=== PATIENT | female | born 1940 | race Caucasian/White ===

== ENCOUNTER → 2017-06-09 | Outpatient (REF) | payer OTHER ==
[~2017-06-09] MED LIST: ALBU83IN INH; CALCTAB75 PO; FISH1000 PO; LISI10TA2 PO; OXYC1TAB23 PO; PERC5TAB12 PO; SSKI1SOL PO; tumeric PO
== END ==
LOC: M LAB REF 13:13
PROVIDERS: ATTEND Internal Medicine Pulmonary Disease
DX: J47.9 Bronchiectasis, uncomplicated (principal)

== ENCOUNTER → 2017-12-28 | Outpatient (REF) | payer OTHER ==
[2017-12-28 11:44] LABS: HEMATOCRIT 45.5 % (36.0-47.0); HEMOGLOBIN 14.9 g/dl (12.0-15.5); MEAN CORPUSCULAR HEMOGLOBIN 33.2 pg (27.0-33.0); MEAN CORPUSCULAR HGB CONC 32.7 g/dl (32.0-36.5); MEAN CORPUSCULAR VOLUME 101.3 fl (80.0-96.0); PLATELET COUNT, AUTOMATED 246 10^3/uL (150-450); RED BLOOD COUNT 4.49 10^6/uL (4.00-5.40); RED CELL DISTRIBUTION WIDTH 13.1 % (11.5-14.5); WHITE BLOOD COUNT 9.6 10^3/uL (4.0-10.0)
[2017-12-28 12:25] LABS: ALBUMIN/GLOBULIN RATIO 1.05 (1.00-1.93); ALKALINE PHOSPHATASE 77 U/L (45-117); ALT/SGPT 30 U/L (12-78); ANION GAP 7 MEQ/L (8-16); AST/SGOT 19 U/L (7-37); BILIRUBIN,TOTAL 0.6 MG/DL (0.2-1.0); BLOOD UREA NITROGEN 20 MG/DL (7-18); CALCIUM LEVEL 9.2 MG/DL (8.8-10.2); CARBON DIOXIDE LEVEL 31 MEQ/L (21-32); CHLORIDE LEVEL 102 MEQ/L (98-107); CHOLESTEROL LEVEL 216 MG/DL (<200); CHOLESTEROL RISK RATIO 3.428 (<5); CREATININE FOR GFR 0.57 MG/DL (0.55-1.30); GLOMERULAR FILTRATION RATE > 60.0 (>39); GLUCOSE, FASTING 92 MG/DL (70-100); HDL CHOLESTEROL 63 MG/DL (>40); LDL CHOLESTEROL 119.2 MG/DL (<100); MAGNESIUM LEVEL 2.1 MG/DL (1.8-2.4); NON-HDL-C 153 MG/DL; POTASSIUM SERUM 4.3 MEQ/L (3.5-5.1); SODIUM LEVEL 140 MEQ/L (136-145); TOTAL PROTEIN 7.8 GM/DL (6.4-8.2); TRIGLYCERIDES LEVEL 169 MG/DL (<150)
[2017-12-28 14:27] LABS: ESTIMATED AVERAGE GLUCOSE 114 MG/DL (60-110); HEMOGLOBIN A1c 5.6 %
== END ==
LOC: M SFHCPLAZ 10:00
DX: I10 Essential (primary) hypertension (principal); R73.01 Impaired fasting glucose; E78.00 Pure hypercholesterolemia, unspecified; Z86.010 Personal history of colon polyps
CPT/HCPCS: 83735

== ENCOUNTER 2018-04-12 10:00 | Day surgery (SDC) | payer OTHER ==
[~2018-04-12 10:00] MED LIST changes: -ALBU83IN INH; +BSS with VANC/TOB/EPI for EYE CASES IR; -CALCTAB75 PO; -FISH1000 PO; +HEALON DUET (HEALON 10MG/ML 0.55ML & HEALON ENDOCOAT 30MG/ML 0.85ML) As Ordered; +LIDOCAINE 1% SDV 5 ML VIAL As Ordered; -LISI10TA2 PO; +MOXIFLOXACIN IN BSS 0.25MG/0.25ML INTRACAMERAL INJ (OR EYE ONLY)(J2280) As Ordered; -OXYC1TAB23 PO; -PERC5TAB12 PO; +PHENYLEPHRINE HCL 10 % OPHTH. SOL 5ML OS; +POVIDONE-IODINE 5% OPHTH PREP SOL 30ML As Ordered; -SSKI1SOL PO; +TRIAMCINOLONE PRES FR 40 MG/ML 1ML(TRIESENCE)(OR EYE ONLY)(J3300 PER 1MG) As Ordered; -tumeric PO
[2018-04-12] MEDS: CYCLOPENTOLATE 2% OPHTH SOLN 2ML BTL OS (10:55)
[2018-04-12] MEDS: LIDOCAINE 3.5 % 1ML OPHTH TOPICAL GEL OU (10:56)
[2018-04-12] MEDS: TROPICAMIDE 1% OPHTH SOLN 2ML OS (10:56)
[2018-04-12] MEDS: OFLOXACIN 0.3 % (OCUFLOX) OPTH SOL 5ML OS (10:56)
[2018-04-12] MEDS: PHENYLEPHRINE 2.5% OPHTH SOL 2ML OS (10:56)
[2018-04-12] MEDS ORDERED: MIDAZOLAM INJ 2 MG/2 ML VIAL (J2250) As Ordered (12:08)
[2018-04-12] MEDS ORDERED: fentaNYL 100 MCG/2 ML INJECTION (J3010) As Ordered (12:08)
== END 2018-04-12 13:00 | disposition home or self-care (01) ==
LOC: M SDC 10:00
DX: H26.9 Unspecified cataract (principal); I10 Essential (primary) hypertension; Z79.899 Other long term (current) drug therapy; Z88.0 Allergy status to penicillin; Z88.2 Allergy status to sulfonamides; Z88.8 Allergy status to other drugs, medicaments and biological substances
CPT/HCPCS: 66984

== ENCOUNTER 2018-04-20 08:02 | Day surgery (SDC) | payer OTHER ==
[~2018-04-20 08:02] MED LIST changes: -BSS with VANC/TOB/EPI for EYE CASES IR; -HEALON DUET (HEALON 10MG/ML 0.55ML & HEALON ENDOCOAT 30MG/ML 0.85ML) As Ordered; -LIDOCAINE 1% SDV 5 ML VIAL As Ordered; +MIDAZOLAM INJ 2 MG/2 ML VIAL (J2250) As Ordered; -MOXIFLOXACIN IN BSS 0.25MG/0.25ML INTRACAMERAL INJ (OR EYE ONLY)(J2280) As Ordered; -PHENYLEPHRINE HCL 10 % OPHTH. SOL 5ML OS; -POVIDONE-IODINE 5% OPHTH PREP SOL 30ML As Ordered; -TRIAMCINOLONE PRES FR 40 MG/ML 1ML(TRIESENCE)(OR EYE ONLY)(J3300 PER 1MG) As Ordered; +fentaNYL 100 MCG/2 ML INJECTION (J3010) As Ordered
[2018-04-20] MEDS: TROPICAMIDE 1% OPHTH SOLN 2ML OD (08:25)
[2018-04-20] MEDS: PHENYLEPHRINE 2.5% OPHTH SOL 2ML OD (08:25)
[2018-04-20] MEDS: LIDOCAINE 3.5 % 1ML OPHTH TOPICAL GEL OU (08:25)
[2018-04-20] MEDS: CYCLOPENTOLATE 2% OPHTH SOLN 2ML BTL OD (08:25)
[2018-04-20] MEDS: OFLOXACIN 0.3 % (OCUFLOX) OPTH SOL 5ML OD (08:25)
[2018-04-20] MEDS: POVIDONE-IODINE 5% OPHTH PREP SOL 30ML As Ordered (10:27)
[2018-04-20] MEDS: BSS with VANC/TOB/EPI for EYE CASES IR (10:27)
[2018-04-20] MEDS: TRIAMCINOLONE PRES FR 40 MG/ML 1ML(TRIESENCE)(OR EYE ONLY)(J3300 PER 1MG) As Ordered (10:35)
[2018-04-20] MEDS: HEALON DUET (HEALON 10MG/ML 0.55ML & HEALON ENDOCOAT 30MG/ML 0.85ML) As Ordered (10:35)
[2018-04-20] MEDS: LIDOCAINE 1% SDV 5 ML VIAL As Ordered (10:35)
[2018-04-20] MEDS: PHENYLEPHRINE HCL 10 % OPHTH. SOL 5ML OD (10:35)
[2018-04-20] MEDS: MOXIFLOXACIN IN BSS 0.25MG/0.25ML INTRACAMERAL INJ (OR EYE ONLY)(J2280) As Ordered (10:35)
== END 2018-04-20 11:05 | disposition home or self-care (01) ==
LOC: M SDC 08:02
DX: H25.13 Age-related nuclear cataract, bilateral (principal); I10 Essential (primary) hypertension; J47.9 Bronchiectasis, uncomplicated; E78.00 Pure hypercholesterolemia, unspecified; R73.01 Impaired fasting glucose; Z88.0 Allergy status to penicillin; Z88.2 Allergy status to sulfonamides; Z88.8 Allergy status to other drugs, medicaments and biological substances; Z79.899 Other long term (current) drug therapy; Z98.51 Tubal ligation status; Z90.710 Acquired absence of both cervix and uterus
CPT/HCPCS: 66984

== ENCOUNTER → 2020-01-02 | Outpatient (REF) | payer MEDICARE ==
[~2020-01-02] MED LIST changes: +ALBU83IN INH; +CALCTAB75 PO; +FISH1000 PO; +LISI10TA15 PO; -MIDAZOLAM INJ 2 MG/2 ML VIAL (J2250) As Ordered; +OXYC1TAB23 PO; +PERC5TAB12 PO; +POTA1SOL PO; -fentaNYL 100 MCG/2 ML INJECTION (J3010) As Ordered; +tumeric PO
== END ==
LOC: M LAB REF 17:25
PROVIDERS: ATTEND Internal Medicine Pulmonary Disease
DX: J47.9 Bronchiectasis, uncomplicated (principal)

== ENCOUNTER → 2020-08-05 | Outpatient (REF) | payer MEDICARE | LOC: M LAB REF 17:10 | PROVIDERS: ATTEND Internal Medicine Pulmonary Disease | DX: J47.1 Bronchiectasis with (acute) exacerbation (principal) | CPT/HCPCS: 87070; 87077; 87184; 87205; G0463 ==

== ENCOUNTER → 2021-06-09 | Outpatient (CLI) | payer MEDICARE ==
--- NOTE | 2021-06-09 19:41 | REP ---
INDICATION: BRONCHIECTASIS, UNCOMPLICATED COMPARISON: None. TECHNIQUE: PA and lateral. FINDINGS: Mediastinum and cardiac silhouette are within normal limits. Lung meehan demonstrate COPD/emphysematous changes along with chronic appearing increased pulmonary vascular and interstitial markings. Somewhat subtle ill-defined area of opacity in the right infrahilar region cannot be excluded. Evidence for prior surgery. A moderate right effusion is suggested. 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 Subtle right infrahilar opacity as well as moderate right pleural effusion. No prior examinations are available for comparison. Consider short-term follow-up examination and or chest CT for further investigation. <Electronically signed by Carlos Rodriguez > 06/09/211936
== END ==
LOC: M PLAIMG 11:43
PROVIDERS: ATTEND Internal Medicine Pulmonary Disease
DX: J47.9 Bronchiectasis, uncomplicated (principal); J44.9 Chronic obstructive pulmonary disease, unspecified; J90 Pleural effusion, not elsewhere classified

== ENCOUNTER → 2021-12-23 | Outpatient (CLI) | payer MEDICARE ==
[~2021-12-23] MED LIST changes: -LISI10TA15 PO; +LISI10TA24 PO
== END ==
LOC: M WUC 12:24
PROVIDERS: ATTEND Internal Medicine Pulmonary Disease
DX: J47.9 Bronchiectasis, uncomplicated (principal)

== ENCOUNTER → 2023-01-05 | Outpatient (CLI) | payer MEDICARE ==
[~2023-01-05] MED LIST changes: +ALBU2.5V10 INH; -ALBU83IN INH
== END ==
LOC: M PLALAB 11:03 → M PLAIMG 11:03
PROVIDERS: ATTEND Internal Medicine Pulmonary Disease
DX: J47.9 Bronchiectasis, uncomplicated (principal)

== ENCOUNTER → 2023-06-28 | Outpatient (CLI) | payer MEDICARE | LOC: M WHC 12:12 | PROVIDERS: ATTEND Internal Medicine Hematology | DX: M81.0 Age-related osteoporosis without current pathological fracture (principal) ==

== ENCOUNTER → 2023-12-22 | Outpatient (CLI) | payer MEDICARE | LOC: M PLAIMG 13:50 | PROVIDERS: ATTEND Internal Medicine Pulmonary Disease | DX: J47.9 Bronchiectasis, uncomplicated (principal) ==

== ENCOUNTER → 2024-03-01 | Outpatient (CLI) | payer MEDICARE ==
[2024-03-01 16:16] LABS: CREATININE, URINE 34.9 MG/DL; MAU/CREAT RATIO 37.2 MCG/MG (0.0-30.0)
== END ==
LOC: M PLALAB 12:05
PROVIDERS: ATTEND Internal Medicine Hematology
DX: I10 Essential (primary) hypertension (principal)

== ENCOUNTER → 2024-12-21 | Outpatient (CLI) | payer MEDICARE | LOC: M PLAIMG 11:24 | PROVIDERS: ATTEND Internal Medicine Pulmonary Disease | DX: R09.02 Hypoxemia (principal) ==

== ENCOUNTER → 2024-12-21 | Outpatient (CLI) | payer MEDICARE ==
[2024-12-21 14:00] LABS: BASO % 0.5 % (0.0-1.0); EOS # 0.2 10^3/uL (0.0-0.5); EOS % 2.1 % (0.0-3.0); HEMATOCRIT 44.1 % (36.0-47.0); HEMOGLOBIN 13.6 g/dl (12.0-15.5); LYMPH # 2.7 10^3/uL (1.5-5.0); LYMPH % 30.7 % (24.0-44.0); MEAN CORPUSCULAR HGB CONC 30.8 g/dl (32.0-36.5); MEAN CORPUSCULAR VOLUME 103.8 fl (80.0-96.0); MONO # 0.8 10^3/uL (0.0-0.8); MONO % 9.3 % (2.0-8.0); NEUTROPHILS # 4.9 10^3/uL (1.5-8.5); NEUTROPHILS % 56.8 % (36.0-66.0); PLATELET COUNT, AUTOMATED 204 10^3/uL (150-450); RED BLOOD COUNT 4.25 10^6/uL (4.00-5.40); WHITE BLOOD COUNT 8.6 10^3/uL (4.0-10.0)
[2024-12-21 14:36] LABS: ALBUMIN 3.7 G/DL (3.2-5.2); BILIRUBIN,TOTAL 0.8 MG/DL (0.3-1.2); CALCIUM LEVEL 9.8 MG/DL (8.3-10.6); CHOLESTEROL RISK RATIO 3.85 (<5); CREATININE FOR GFR 0.63 MG/DL (0.55-1.30); GLOMERULAR FILTRATION RATE 87.4 (>32); HDL CHOLESTEROL 57.8 MG/DL (>40); NON-HDL-C 165.2 MG/DL; POTASSIUM SERUM 4.3 MMOL/L (3.5-5.1); THYROID STIMULATING HORMONE 3.289 uIU/ML (0.55-4.78); TOTAL PROTEIN 7.6 G/DL (5.7-8.2)
== END ==
LOC: M PLALAB 11:26
PROVIDERS: ATTEND Student in an Organized Health Care Education/Training Program
DX: E03.9 Hypothyroidism, unspecified (principal)

== ENCOUNTER → 2025-06-22 | Outpatient (REF) | payer MEDICARE ==
[2025-06-22 18:00] LABS: APPEARANCE, URINE CLEAR (CLEAR); BACTERIA, URINE AUTO 2+ (NEGATIVE); BILIRUBIN, URINE AUTO NEGATIVE (NEGATIVE); BLOOD, URINE BLOOD NEGATIVE (NEGATIVE); GLUCOSE, URINE (UA) AUTO NEGATIVE (NEGATIVE); KETONE, URINE AUTO NEGATIVE (NEGATIVE); LEUKOCYTE ESTERASE, URINE AUTO NEGATIVE (NEGATIVE); MUCUS, URINE SMALL (NEGATIVE); NITRITE, URINE AUTO POSITIVE (NEGATIVE); PROTEIN, URINE AUTO NEGATIVE (NEGATIVE); RBC, URINE AUTO 0 /HPF (0-3); SPECIFIC GRAVITY URINE AUTO 1.012 (1.002-1.035); SQUAMOUS EPITHELIAL CELL UR AU 1 /HPF (0-6); UROBILINOGEN, URINE AUTO 0.2 mg/dL (0.0-2.0); WBC, URINE AUTO 1 /HPF (0-3)
[2025-06-25 08:17] LABS: CHLAMYDIA TRACHOMATIS NAA NOT DETECTED (NOT DETECTED)
[2025-06-25 08:28] LABS: CANDIDA GLABRATA NAA NOT DETECTED (NOT DETECTED); TRICH VAG BY NAA NOT DETECTED (NOT DETECTED)
[2025-06-25 15:57] LABS: BVAB 2 POSITIVE (NEGATIVE)
== END ==
LOC: M SFHCPLAZ 16:45
DX: R39.9 Unspecified symptoms and signs involving the genitourinary system (principal); Z11.3 Encounter for screening for infections with a predominantly sexual mode of transmission; Z72.89 Other problems related to lifestyle